=== PATIENT | male | born 1995 | race African-American/Black ===

== ENCOUNTER 2024-11-24 23:49 | Emergency (ER) | payer OTHER ==
[~2024-11-24] VITALS: Ht 180.3 cm; Wt 122.5 kg
[2024-11-24] MEDS ORDERED: LISINOPRIL40 MG PO (23:58)
[2024-11-25] MEDS ORDERED: chlorproMAZINE Hydrochloride 50 MG/2 ML AMP IM ONE (00:10)
== END 2024-11-25 01:08 | disposition home or self-care (01) ==
LOC: ED 23:49 → EDBD 23:52 → ED 11-25 01:08
DX: R06.6 Hiccough (principal); Z79.899 Other long term (current) drug therapy